=== PATIENT | female | born 1975 | race Caucasian/White ===

== ENCOUNTER 2017-10-06 13:27 | Emergency (ER) | payer OTHER ==
[2017-10-06 13:54] VITALS: BP 144/88; PULSE 87; TEMP 98.8; BMI 29.2
--- NOTE | 2017-10-06 14:24 | PDOC ---
History of Present Illness - General Chief Complaint: Toothache Stated Complaint: TOOTHACHE Time Seen by Provider: 10/06/17 14:02 History Source: Patient Exam Limitations: No Limitations - History of Present Illness Associated Symptoms: denies: chest pain, fever/chills, shortness of breath (42y/ o F with dental pain X 3 days) Past History - Travel Traveled outside of the country in the last 30 days: No Close contact w/someone who was outside of country & ill: No - Past Medical History Allergies/Adverse Reactions: Allergies Allergy/AdvReac Type Severity Reaction Status Date / Time No Known Allergies Allergy Verified 10/06/17 13:49 Home Medications: Ambulatory Orders Acetaminophen/Caffeine/Butalb [Fioricet -] 1 tab PO Q6H #28 tablet 05/06/15 Levothyroxine [Synthroid -] 100 mcg PO DAILY 05/06/15 Metoclopramide HCl [Reglan] 10 mg PO BID PRN #20 tablet 05/06/15 Amoxicillin/Potassium Clav [Augmentin 875-125 Tablet] 1 each PO BID 10 Days #20 tablet 10/06/17 Ibuprofen 800 mg PO ACDIN 7 Days #20 tablet 10/06/17 COPD: No Thyroid Disease: Yes - Suicide/Smoking/Psychosocial Hx Smoking Status: No Smoking History: Never smoked Have you smoked in the past 12 months: No Number of Cigarettes Smoked Daily: 0 Hx Alcohol Use: No Drug/Substance Use Hx: No Hx Substance Use Treatment: No Review of Systems - Review of Systems Able to Perform ROS?: Yes Is the patient limited Azeri proficient: No Constitutional: No: Chills, Fever HEENTM: Yes: Mouth Pain, Dental Problems. No: Throat Pain, Difficulty Swallowing Respiratory: No: Orthopnea, Shortness of Breath Cardiac (ROS): No: Chest Pain Neurological: No: Headache, Paresthesia *Physical Exam - Vital Signs Last Vital Signs Temp Pulse Resp BP Pulse Ox 98.8 F 87 18 144/88 100 10/06/17 13:47 10/06/17 13:47 10/06/17 13:47 10/06/17 13:47 10/06/17 13:47 - Physical Exam General Appearance: Yes: Nourished HEENT: positive: EOMI, Other (+ 2 carious tooth in left lower molar region,+ gum tenderness, no abscess noted) Neck: positive: Supple Respiratory/Chest: positive: Lungs Clear, Normal Breath Sounds Cardiovascular: positive: Regular Rhythm, Regular Rate, S1, S2 Integumentary: positive: Normal Color Neurologic: positive: marketing development representative II-XII NML intact, Fully Oriented, Alert Medical Decision Making - Medical Decision Making 10/06/17 14:22 42 years old female presents with lower molar pain for the past one week. Patient is status post root canal in the front incisor teeth area which was done on September 19. She is scheduled for a dental extraction on the of this month. Patient presents to emergency room with worsening pain in the area of where this rasher would've taken place. She is complaining of facial swelling. She denies any fever chills Exam consistent with two carious teeth in the left lower molar region positive Gum swelling and no obvious abscess noted. I will start patient on antibiotics Motrin when necessary for pain patient was advised to call dentist to follow-up old schedule a sooner appointment. *DC/Admit/Observation/Transfer Diagnosis at time of Disposition: Dental caries - Discharge Dispostion Disposition: HOME Condition at time of disposition: Stable Admit: No - Prescriptions Prescriptions: Amoxicillin/Potassium Clav [Augmentin 875-125 Tablet] 1 each PO BID 10 Days #20 tablet Ibuprofen 800 mg PO ACDIN 7 Days #20 tablet - Referrals Referrals: Eliana Lomeli [Primary Care Provider] - - Patient Instructions Additional Instructions: Follow-up dentist as scheduled or sooner Antibiotics as prescribed - Post Discharge Activity
== END 2017-10-06 14:28 | disposition home or self-care (01) ==
LOC: JER 13:27 → JERFT 13:27
DX: K02.9 Dental caries, unspecified (principal)
CPT/HCPCS: 99281-25

== ENCOUNTER 2017-11-06 15:37 | Inpatient (IN) | payer OTHER ==
--- NOTE | 2017-11-06 15:50 | PDOC ---
Rapid Medical Evaluation Time Seen by Provider: 11/06/17 15:47 Medical Evaluation: Allergies Allergy/AdvReac Type Severity Reaction Status Date / Time No Known Allergies Allergy Verified 10/06/17 13:49 I have performed a brief in-person evaluation of this patient. The patient presents with a chief complaint of: b/l flank pain x [address] Lomeli sent her here. Just finished ampicillin 5 days ago for dental procedure Pertinent physical exam findings: b/l flank pain with palpation. I have ordered the following: labs, UA/hcg The patient will proceed to the ED for further evaluation. Discharge Disposition - Diagnosis Abdominal pain - Referrals - Patient Instructions - Post Discharge Activity
[2017-11-06] MEDS ORDERED: SODIUM CHLORIDE 1,000 ML IV STA (16:02)
--- NOTE | 2017-11-06 16:02 | PDOC ---
History of Present Illness - General Chief Complaint: Pain, Acute Stated Complaint: ABD PAIN Time Seen by Provider: 11/06/17 15:47 - History of Present Illness Initial Comments: 11/06/17 16:31 The patient is a 42 year old female with no significant PMH who presents for evaluation of abdominal pain and diarrhea. The patient notes that she had a recent wisdom tooth extraction and has been taking penicillin which she stopped 6 days ago. She noted 4 days ago onset of diffuse intermittent crampy abdominal pain with associated nausea. She noted continued symptoms as well as diarrhea today prompting her presentation to the ED for further evaluation. She otherwise denies fevers, chills, SOB, chest pain, vomiting, or changes with urination. Past History - Past Medical History Allergies/Adverse Reactions: Allergies Allergy/AdvReac Type Severity Reaction Status Date / Time No Known Allergies Allergy Verified 11/06/17 15:51 Home Medications: Ambulatory Orders Levothyroxine [Synthroid -] 137 mcg PO DAILY 05/06/15 Calcitriol 0.5 mcg PO BID 11/06/17 COPD: No Thyroid Disease: Yes - Suicide/Smoking/Psychosocial Hx Smoking Status: No Smoking History: Never smoked Have you smoked in the past 12 months: No Number of Cigarettes Smoked Daily: 0 Information on smoking cessation initiated: No Hx Alcohol Use: No Drug/Substance Use Hx: No Hx Substance Use Treatment: No Review of Systems - Review of Systems Comments:: 11/06/17 16:39 Constitutional: No fevers, chills, fatigue, malaise HEENT: No Rhinorrhea, nasal congestion, visual changes Cardiovascular: No chest pain, syncope, palpitations, lightheadedness Respiratory: No Cough, SOB, Hemoptysis, Gastrointestinal: Abdominal discomfort, nausea, diarrhea. No Vomiting, Constipation, Melena Genitourinary: No Dysuria, Frequency, Urgency, Hesitancy, Hematuria, Flank pain Musculoskeletal: No Myalgia, arthralgia Skin: No rashes, itching, bruising, pallor Neurologic: No Headache, Dizziness, Numbness, Weakness, or Tingling Psychiatric: No Hallucinations. No SI or HI *Physical Exam - Vital Signs Last Vital Signs Temp Pulse Resp BP Pulse Ox 98.1 F 97 H 16 126/90 100 11/06/17 15:48 11/06/17 15:48 11/06/17 15:48 11/06/17 15:48 11/06/17 15:48 - Physical Exam Comments: 11/06/17 16:39 General Appearance: Nourished. No Apparent Distress HEENT: EOMI, LORI. No Pharyngeal Erythema, Tonsillar Exudate, Tonsillar Erythema Neck: No Cervical Lymphadenopathy Respiratory/Chest: Lungs Clear, Normal Breath Sounds. No Crackles, Rales, Rhonchi, Wheezing Cardiovascular: Regular Rhythm, Regular Rate. No Murmur, Gallops, Rubs Gastrointestinal/Abdominal: Normal Bowel Sounds, Soft. No Guarding, Rebound, Tenderness Musculoskeletal: No CVA Tenderness Extremity: Normal Capillary Refill Integumentary: Normal Color, Dry, Warm Neurologic: Fully Oriented, Alert, Normal Mood/Affect, Normal Response, ED Treatment Course - LABORATORY CBC & Chemistry Diagram: 11/06/17 16:13 11/06/17 16:13 Medical Decision Making - Medical Decision Making 11/06/17 16:40 The patient is a 42 year old female with no significant PMH who presents for evaluation of abdominal pain and diarrhea. Differential includes but is not limited to: Gastroenteritis, Cholecystitis, pancreatitis, infectious, metabolic derangement. Given the patient's history and physical exam, it is likely the patient's symptoms are due to a gastroenteritis. Bedside US demonstrates known gallstones. We will obtain a cbc, cmp, lipase, ua, urine preg, and gallbladder US to evaluate further for possible etiologies. We will treat in the meantime with iv fluids, zofran, pepcid, and mylanta. We will continue to monitor and reassess while here in the ED. 11/06/17 19:21 CBC demonstrates an elevated wbc to 15. UA is unremarkable. Patient signed out to the night team pending gallbladder US and cmp to evaluate further. *DC/Admit/Observation/Transfer Diagnosis at time of Disposition: Acute cholecystitis Abdominal pain Qualifiers: Abdominal location: unspecified location Qualified Code(s): R10.9 - Unspecified abdominal pain - Discharge Dispostion Condition at time of disposition: Fair - Referrals - Patient Instructions - Post Discharge Activity
--- NOTE | 2017-11-06 16:14 | PDOC ---
Attending Attestation - [facility] HPI: 11/06/17 16:40 The patient is a 42 year old female, with a significant past medical history of thyroid disease, who presents to the emergency department complaining of abdominal pain for the past 4 days, nausea and diarrhea which began today. She describes her pain as ranging from mild to moderate, without radiation or modifying factors. She reports that at times she does get a sour taste in the back of her mouth. She describes her diarrhea as nonbloody. She notes that she recently finished a 5 day regimen of penicillin after a dental procedure. The patient denies chest pain, shortness of breath, headache or dizziness. Denies fever, chills, vomiting, and constipation. Denies dysuria, frequency, urgency and hematuria. Allergies: None Past surgical history: None reported Social History: No alcohol, tobacco or drug use reported - Physicial Exam PE: 11/06/17 16:40 Constitutional: Awake, alert, oriented. No acute distress. Head: Normocephalic. Atraumatic Eyes: PERRL. EOMI. Conjunctivae are not pale. ENT: Mucous membranes are moist and intact. Posterior pharynx without exudates or erythema. Uvula midline. Neck: Supple. Full ROM. No lymphadenopathy. Cardiovascular: Regular rate. Regular rhythm. S1, S2 regular. Distal pulses are 2+ and symmetric. Pulmonary/Chest: No evidence of respiratory distress. Clear to auscultation bilaterally No wheezing, rales or rhonchi. Abdominal: Soft and non-distended. There is no tenderness. No rebound, guarding or rigidity. No organomegaly. No palpable masses. Good bowel sounds. Back: No CVA tenderness. Musculoskeletal: No edema. No cyanosis. No clubbing. Full range of motion in all extremities. Nocalf tenderness. Radial/pedal pulses are intact and 2+ bilaterally Skin: Skin is warm and dry. No petechiae. No purpura. Neurological: Alert and oriented to person, place, and time. Cranial nerves II -XII are grossly intact. Normal speech. Strength is grossly symmetric. No sensory deficits. Psychiatric: Good eye contact. Normal interaction, affect and behavior. Bedside Sonogram: (+) Reveals 4 gallstones, without pericholecystic fluid, with no thickeninf of the gallbladder wall. <Bryson Mckay - Last Filed: 11/06/17 16:40> - Resident Resident Name: Nilesh Hi - ED Attending Attestation I have performed the following: I have examined & evaluated the patient, The case was reviewed & discussed with the resident, I agree w/resident's findings & plan, Exceptions are as noted - Medical Decision Making 11/06/17 16:14 I, Dr. Minerva Samuel, DO, attest that this document has been prepared under my direction and personally reviewed by me in its entirety. I further attest, that it accurately reflects all work, treatment, procedures and medical decision -making performed by me. 11/06/17 16:34 a/p: 42yo female with nausea and diarrhea x 2 days -recently finished pcn for a dental procedure on Saturday -crampy abd pain - no pain currently -bedside u/s shows gallstones without signs of acute nga -will obtain formal imaging study -will obtain labs, ua -will monitor and reassess -suspect gastritis vs viral syndrome vs symptomatic cholelithiasis vs gerd -ivf hydration, zofran, maalox, pepcid 11/06/17 19:37 labs reviewed pt with thickened gb wall, gallstones, +sonographic murphys discussed with pt concern for acute nga will discuss with surgery 11/06/17 20:[address] Palomo who recommends ivf hydration, zosyn, consult to iron, admission to her accepts pt for admission <Minerva Samuel - Last Filed: 11/06/17 20:04> Discharge Disposition - Discharge Dispostion Last Admission D/C Date: 11/08/11 Decision to Admit order: Yes <Mienrva Samuel - Last Filed: 11/06/17 20:04> - Diagnosis Abdominal pain, Acute cholecystitis - Discharge Dispostion Condition at time of disposition: Fair - Referrals Referrals: Beverly Vizcarra MD [Primary Care Provider] - - Patient Instructions - Post Discharge Activity Heart Score/ECG Review - ECG Intrepretation Comment:: 11/06/17 20:03 sinus at 96, nl axis, nl interval, no acute st/t wave findings <Minerva Samuel - Last Filed: 11/06/17 20:04>
[2017-11-06] MEDS ORDERED: MAG HYDROX/AL HYDROX/SIMETH 30 ML UNIT-DOSE CUP PO ONE (16:16)
[2017-11-06] MEDS ORDERED: ONDANSETRON 4 MG/2 ML VIAL IVPUSH ONE (16:16)
[2017-11-06] MEDS ORDERED: MAG HYDROX/AL HYDROX/SIMETH 30 ML UNIT-DOSE CUP ONE (16:25)
[2017-11-06] MEDS ORDERED: ONDANSETRON 4 MG/2 ML VIAL ONE (16:41)
[2017-11-06 16:55] LABS: BASO % 0.5 % (0-2.0); EOS % 1.4 % (0-4.5); HEMATOCRIT 41.4 % (32.4-45.2); HEMOGLOBIN 13.6 GM/dL (10.7-15.3); LYMPH % 20.9 % (8-40); MCH 28.6 pg (25.7-33.7); MCHC 32.8 g/dl (32.0-36.0); MEAN CELL VOLUME 87.1 fl (80-96); MEAN PLT VOLUME 8.3 fl (7.5-11.1); MONO % 5.2 % (3.8-10.2); PLATELET COUNT 511 K/MM3 (134-434); RBC 4.75 M/mm3 (3.60-5.2); RDW 13.3 % (11.6-15.6); WHITE BLOOD COUNT 15.3 K/mm3 (4.0-10.0)
[2017-11-06] MEDS ORDERED: FAMOTIDINE 20 MG/50 ML IVPB 20 MG/50 ML MG IVPB ONE ×2 (16:57→17:00)
[2017-11-06 16:59] LABS: URINE APPEARANCE SLCLOUDY; URINE BILIRUBIN NEGATIVE (<2.0 mg/dL); URINE BLOOD NEGATIVE (NEGATIVE); URINE COLOR LTYELLOW; URINE GLUCOSE (UA) NEGATIVE (NEGATIVE); URINE KETONE TRACE (NEGATIVE); URINE NITRITE NEGATIVE (NEGATIVE); URINE PROTEIN NEGATIVE (NEGATIVE); URINE UROBILINOGEN NEGATIVE mg/dL (0.2-1.0)
[2017-11-06 17:17] LABS: HCG,QUALITATIVE URINE NEGATIVE
[2017-11-06 17:18] LABS: URINE LEUK ESTERASE 1+ (NEGATIVE)
[2017-11-06 17:39] LABS: ALBUMIN 4.1 g/dl (3.4-5.0); ANION GAP 6 (8-16); BLOOD UREA NITROGEN 9 mg/dL (7-18); CALCIUM 9.4 mg/dL (8.5-10.1); CHLORIDE 103 mmol/L (98-107); CO2 26 mmol/L (21-32); CREATININE 0.9 mg/dL (0.55-1.02); GLUCOSE,RANDOM 73 mg/dL (74-106); POTASSIUM 3.8 mmol/L (3.5-5.1); SGOT/AST 17 U/L (15-37); SODIUM 135 mmol/L (136-145)
[2017-11-06 17:49] LABS: ALK PHOS 85 U/L (45-117); BILIRUBIN,TOTAL 0.7 mg/dL (0.2-1.0); SGPT/ALT 35 U/L (12-78)
[2017-11-06 17:51] LABS: LIPASE 208 U/L (73-393)
[2017-11-06 19:17] LABS: EPI CELLS MODERATE /HPF (FEW); URINE BACTERIA FEW /hpf (NONE SEEN); URINE HYALINE CAST 2 /lpf; URINE MUCUS RARE
[2017-11-06 19:32] LABS: PLATELET ESTIMATE INCREASED
[2017-11-06] MEDS ORDERED: SODIUM CHLORIDE 0.9% 1000 ML INFUS.BAG IV ONE (19:47)
[2017-11-06] MEDS ORDERED: PIPERACILLIN/TAZOB 4.5 GM 4.5 GM in DEXTROSE 5%-WATER 100 ML IVPB ONE (19:58)
[2017-11-06] MEDS ORDERED: PIPERACILLIN/TAZOB 4.5 GM 4.5 GM/100 ML BAG IVPB ONE (20:12)
[2017-11-06 20:25] LABS: INR 1.15 (0.82-1.09)
[2017-11-06] MEDS: D5-1/2NS+20 MEQ KCL - 20 MEQ/1,000 ML INFUS.BAG IV SCH (21:42)
[2017-11-06] MEDS ORDERED: morphine CARPU-JECT 2 MG/1 ML DISP.SYRIN IVPUSH PRN (23:33)
[2017-11-06] MEDS ORDERED: ACETAMINOPHEN 1000 MG/100 ML VIAL (NON FORMULARY) IVPB ONE (23:33)
[2017-11-06] MEDS ORDERED: ACETAMINOPHEN 325 MG TABLET (FP) PO PRN (23:37)
[2017-11-06] MEDS ORDERED: ONDANSETRON 4 MG/2 ML VIAL IVPUSH PRN (23:41)
[2017-11-07 01:22] VITALS: BMI 31.7
[2017-11-07] MEDS ORDERED: PIPERACILLIN/TAZOBACTAM 3.375 GM VIAL IVPB ONE ×4 (01:28→17:15)
[2017-11-07] MEDS ORDERED: DEXTROSE 5%-WATER - 50 ML IVPB ONE ×3 (01:29→15:52)
[2017-11-07] MEDS: PIPERACILLIN/TAZOB 3.375 GM 3.375 GM in DEXTROSE 5%-WATER - 50 ML IVPB SCH ×3 (01:44→19:14)
[2017-11-07] MEDS ORDERED: LEVOTHYROXINE NA 25 MCG TABLET (FP) ONE (06:12)
[2017-11-07] MEDS ORDERED: LEVOTHYROXINE NA 112 MCG TABLET (FP) ONE (06:12)
[2017-11-07] MEDS ORDERED: LEVOTHYROXINE 25 MCG, LEVOTHYROXINE 112 MCG PO SCH (07:00)
[2017-11-07 07:36] LABS: BASO % 0.8 % (0-2.0); EOS % 3.9 % (0-4.5); HEMOGLOBIN 11.9 GM/dL (10.7-15.3); LYMPH % 31.3 % (8-40); MCH 29.5 pg (25.7-33.7); MCHC 33.9 g/dl (32.0-36.0); MEAN CELL VOLUME 87.1 fl (80-96); MEAN PLT VOLUME 8.2 fl (7.5-11.1); MONO % 8.3 % (3.8-10.2); NEUT % 55.7 % (42.8-82.8); PLATELET COUNT 389 K/MM3 (134-434); RBC 4.02 M/mm3 (3.60-5.2); RDW 13.3 % (11.6-15.6); WHITE BLOOD COUNT 7.4 K/mm3 (4.0-10.0)
[2017-11-07 08:06] LABS: ALBUMIN 3.1 g/dl (3.4-5.0); ANION GAP 7 (8-16); BLOOD UREA NITROGEN 8 mg/dL (7-18); CALCIUM 8.2 mg/dL (8.5-10.1); CHLORIDE 107 mmol/L (98-107); CO2 26 mmol/L (21-32); GLUCOSE,RANDOM 84 mg/dL (74-106); POTASSIUM 4.1 mmol/L (3.5-5.1); SODIUM 140 mmol/L (136-145)
[2017-11-07 08:09] LABS: ALK PHOS 63 U/L (45-117); BILIRUBIN,TOTAL 0.8 mg/dL (0.2-1.0); SGOT/AST 12 U/L (15-37); SGPT/ALT 27 U/L (12-78); TOT PROT 6.3 g/dl (6.4-8.2)
[2017-11-07 08:22] LABS: LIPASE 218 U/L (73-393)
[2017-11-07] MEDS ORDERED: LEVOTHYROXINE NA 100 MCG TABLET (FP) PO SCH (10:00)
--- NOTE | 2017-11-07 10:43 | HP ---
Admitting History and Physical - Primary Care Physician PCP: Kurt Vizcarra - Admission Chief Complaint: abdominal pain, nausea, diarrhea History of Present Illness: 42yo F with h/o hyperthyroidism s/p thyroidectomy now on replacement tx, s/p abdominoplasty, presented to ER with upper abdominal pain associated with diarrhea and nausea but no vomiting. She had a course of Augmentin last month for tooth pain, followed by wisdom tooth extraction ~10/21 and a postop course of Penicillin completed on Saturday. Saturday, she began having abdominal pain, feeling like she had to use the bathroom, which became worse over the next few days. and Sat, she began having foul-smelling, yellowish diarrhea and worse pain, and came to the ER. She also noted chills but no fever, and did not eat yesterday. She had nausea but no actual vomiting. In the ER, she had wbc 15 , and US showed multiple gallstones, mildly thickened wall, no fluid, normal duct, suspicious for acute cholecystitis. She had a Gamez's sign on US. Her pain is currently better, but she last had some loose stool just this morning. She has been started on IVF and Zosyn for acute cholecystitis. History Source: Patient Limitations to Obtaining History: No Limitations - Past Medical History Hepatobiliary: Yes: Cholelithiasis ...: No Endocrine: Yes: Hyperthyroidism (h/o hyper, now s/p thyroidectomy), Hypothyroidism (postop - takes synthroid) - Past Surgical History Additional Past Surgical History: thyroidectomy, abdominoplasty, wisdom tooth extraction 10/21/17 - Smoking History Smoking history: Never smoked (<1 yr remotely) Have you smoked in the past 12 months: No Aproximately how many cigarettes per day: 0 - Alcohol/Substance Use Hx Alcohol Use: Yes (occasionally) History of Substance Use: reports: None - Social History Usual Living Arrangement: Yes: With Child ADL: Independent 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 denies: Fever Eyes: reports: Other (wears glasses). denies: Recent Change in Vision HENT: denies: Difficult Swallowing, Nasal Congestion, Throat Pain Neck: denies: Swollen Glands, Tenderness Cardiovascular: denies: Chest Pain, Palpitations Respiratory: denies: Cough, SOB Gastrointestinal: reports: Abdominal Pain (with hpi), Bloating, Diarrhea (with hpi), Nausea (with hpi). denies: Vomiting Genitourinary: denies: Burning, Dysuria Musculoskeletal: denies: Back Pain, Joint Pain, Muscle Pain Integumentary: denies: Change in Color, Rash Neurological: reports: Headache (gets sometimes). denies: Dizziness Psychiatric: denies: Anxiety, Depression Physical Examination Vital Signs: Vital Signs Temperature 98.5 F 11/07/17 05:39 Pulse Rate 77 11/07/17 05:39 Respiratory Rate 20 11/07/17 05:39 Blood Pressure 114/70 11/07/17 05:39 O2 Sat by Pulse Oximetry (%) 100 11/07/17 00:27 Constitutional: Yes: Well Nourished, No Distress, Calm Eyes: Yes: Conjunctiva Clear, EOM Intact. No: Sclera Icterus HENT: Yes: Atraumatic, Normocephalic Neck: Yes: Supple, Trachea Midline Cardiovascular: Yes: Regular Rate and Rhythm. No: Murmur Respiratory: Yes: Regular, CTA Bilaterally Gastrointestinal: Yes: Normal Bowel Sounds, Soft, Tenderness (mild RUQ no R/G), Other (well-healed abdominoplasty scars). No: Distention, Hernia (no umbilical appreciated) ...Rectal Exam: Yes: Deferred Renal/: No: CVA Tenderness - Left, CVA Tenderness - Right Musculoskeletal: No: Back Pain (no direct tenderness), Joint Stiffness, Joint Swelling Extremities: No: Cool, Cyanosis Edema: No Peripheral Pulses WNL: Yes Integumentary: Yes: Tattoos (ankle). No: Jaundice, Rash Neurological: Yes: Alert, Oriented Psychiatric: Yes: Alert, Oriented Labs: CBC, BMP 11/07/17 06:00 11/07/17 06:00 CMP Sodium 140 mmol/L (136-145) 11/07/17 06:00 Potassium 4.1 mmol/L (3.5-5.1) 11/07/17 06:00 Chloride 107 mmol/L (98-107) 11/07/17 06:00 Carbon Dioxide 26 mmol/L (21-32) 11/07/17 06:00 Anion Gap 7 (8-16) L 11/07/17 06:00 BUN 8 mg/dL (7-18) 11/07/17 06:00 Creatinine 1.0 mg/dL (0.55-1.02) 11/07/17 06:00 Creat Clearance w eGFR > 60 (>60) 11/07/17 06:00 Random Glucose 84 mg/dL (74-106) 11/07/17 06:00 Calcium 8.2 mg/dL (8.5-10.1) L 11/07/17 06:00 Total Bilirubin 0.8 mg/dL (0.2-1.0) 11/07/17 06:00 AST 12 U/L (15-37) L 11/07/17 06:00 ALT 27 U/L (12-78) 11/07/17 06:00 Alkaline Phosphatase 63 U/L (45-117) 11/07/17 06:00 Total Protein 6.3 g/dl (6.4-8.2) L 11/07/17 06:00 Albumin 3.1 g/dl (3.4-5.0) L 11/07/17 06:00 Lipase 218 U/L (73-393) 11/07/17 06:00 wbc down from 15 LFTs, lipase normal x2 INR, PTT INR 1.15 (0.82-1.09) H 11/06/17 19:50 Urine Test Results Urine Color Ltyellow 11/06/17 15:51 Urine Appearance Slcloudy 11/06/17 15:51 Urine pH 7.0 (5.0-8.0) 11/06/17 15:51 Ur Specific [place] 1.004 (1.001-1.035) 11/06/17 15:51 Urine Protein Negative (NEGATIVE) 11/06/17 15:51 Urine Glucose (UA) Negative (NEGATIVE) 11/06/17 15:51 Urine Ketones Trace (NEGATIVE) H 11/06/17 15:51 Urine Blood Negative (NEGATIVE) 11/06/17 15:51 Urine Nitrite Negative (NEGATIVE) 11/06/17 15:51 Urine Bilirubin Negative (<2.0 mg/dL) 11/06/17 15:51 Ur Leukocyte Esterase 1+ (NEGATIVE) H 11/06/17 15:51 Ur Epithelial Cells Moderate /HPF (FEW) 11/06/17 15:51 Urine Bacteria Few /hpf (NONE SEEN) 11/06/17 15:51 Urine Mucus Rare 11/06/17 15:51 Imaging - Results Ultrasound: Report Reviewed, Image Reviewed (images personally reviewed - multiple gallstones, mildly thickened wall, no pericholecystic fluid, cbd 3.4mm) Problem List - Problems (1) Calculus of gallbladder with cholecystitis without biliary obstruction Assessment/Plan: pt describes h/o likely biliary colic and known gallstones identified several months ago admit to surgery NPO/IVF until postop pain meds prn DVT prophylaxis trend labs - no increase in LFTs or lipase this am, wbc down antibiotics, ID on board Discussed with patient risks, benefits and alternatives of laparoscopic possible open cholecystectomy, including but not limited to bleeding, infection , injury to adjacent structures, bile leak or ductal injury, intraabdominal abscess, need for further procedures; alternatives include antibiotics, delayed or no surgery - risks of this include cholangitis, recurrence of biliary colic, cholecystitis, pancreatitis. Patient desires to proceed with operation - will take to OR for above. Informed consent signed for same. anticipate pt will spend 2 midnights in hospital Code(s): K80.00 - CALCULUS OF GALLBLADDER W ACUTE CHOLECYST W/O OBSTRUCTION Qualifiers: Cholecystitis acuity: acute Qualified Code(s): K80.00 - Calculus of gallbladder with acute cholecystitis without obstruction (2) Upper abdominal pain Code(s): R10.10 - UPPER ABDOMINAL PAIN, UNSPECIFIED (3) Diarrhea Assessment/Plan: will check stool for C. diff if diarrhea continues Code(s): R19.7 - DIARRHEA, UNSPECIFIED Qualifiers: Diarrhea type: unspecified type Qualified Code(s): R19.7 - Diarrhea, unspecified (4) Nausea alone Code(s): R11.0 - NAUSEA (5) Hypothyroidism Assessment/Plan: continue home meds Code(s): E03.9 - HYPOTHYROIDISM, UNSPECIFIED Qualifiers: Hypothyroidism type: postoperative Qualified Code(s): E89.0 - Postprocedural hypothyroidism
[2017-11-07] MEDS ORDERED: CALCITRIOL 0.25 MCG CAPSULE (FP) PO SCH (10:45)
[2017-11-07] MEDS: D5-1/2NS+20 MEQ KCL - 20 MEQ/1,000 ML INFUS.BAG IV SCH (11:28)
--- NOTE | 2017-11-07 11:28 | EKG ---
Test Reason : Blood Pressure : / mmHG Vent. Rate : 096 BPM Atrial Rate : 096 BPM P-R Int : 178 ms QRS Dur : 082 ms QT Int : 350 ms P-R-T Axes : 022 -05 005 degrees QTc Int : 442 ms NORMAL SINUS RHYTHM NORMAL ECG WHEN COMPARED WITH ECG OF 07-NOV-2011 09:08, PREMATURE SUPRAVENTRICULAR COMPLEXES ARE NO LONGER PRESENT Confirmed by WILIAM ANDERSON MD ([id number]) on 11/07/2017 11:28:16 AM Referred By: Confirmed By:WILIAM ANDERSON MD
[2017-11-07] MEDS ORDERED: BUPIVACAINE HCL/PF 0.25% (2.5MG/ML) 10 ML VIAL ONE (15:05)
[2017-11-07] MEDS ORDERED: ROCURONIUM BROMIDE 50 MG/5 ML VIAL ONE ×2 (15:19→16:06)
[2017-11-07] MEDS ORDERED: PROPOFOL 20 ML ONE ×3 (15:20→17:13)
[2017-11-07] MEDS ORDERED: LIDOCAINE HCL/PF 2% SDV 5ML VIAL ONE (15:20)
--- NOTE | 2017-11-07 15:36 | CON.ID ---
Consult Consult Specialty:: infectious diseases Referred by:: Dr Palomo Reason for Consultation:: leukocytosis,choleycystitis - History of Present Illness Chief Complaint: rt upper quadrant pain History of Present Illness: 42yo F with h/o hyperthyroidism s/p thyroidectomy now on replacement tx, s/p abdominoplasty, admitted with upper abdominal pain associated with diarrhea and nausea but no vomiting. She had a course of Augmentin last month for tooth pain , followed by wisdom tooth extraction ~10/21 and a postop course of Penicillin completed on Saturday. patient started having abd pain which worsened over last couple of days and the pain was associated with chills. patient came to the hospital was worked up and found to ahve leukocytosis and also choleycystitis patient for surgery today us shoed multiple gall stones patient also mentions of having dirrhoea - History Source History Provided By: Patient Limitations to Obtaining History: No Limitations - Past Medical History Hepatobiliary: Yes: Cholelithiasis ...: No Endocrine: Yes: Hyperthyroidism (h/o hyper, now s/p thyroidectomy), Hypothyroidism (postop - takes synthroid) - Alcohol/Substance Use Hx Alcohol Use: Yes (occasionally) History of Substance Use: reports: None - Smoking History Smoking history: Never smoked (<1 yr remotely) Have you smoked in the past 12 months: No Aproximately how many cigarettes per day: 0 - Social History ADL: Independent 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 Home Medications - Allergies Allergies/Adverse Reactions: Allergies Allergy/AdvReac Type Severity Reaction Status Date / Time No Known Allergies Allergy Verified 11/06/17 15:51 - Home Medications Home Medications: Ambulatory Orders Levothyroxine [Synthroid -] 137 mcg PO DAILY 05/06/15 Calcitriol 0.5 mcg PO BID 11/06/17 Review of Systems - Review of Systems Constitutional: reports: Chills Eyes: reports: No Symptoms HENT: reports: No Symptoms Neck: reports: No Symptoms Cardiovascular: reports: No Symptoms Respiratory: reports: No Symptoms Gastrointestinal: reports: Abdominal Pain (ruq) Musculoskeletal: reports: No Symptoms Integumentary: reports: No Symptoms Neurological: reports: No Symptoms Endocrine: reports: No Symptoms Hematology/Lymphatic: reports: No Symptoms Psychiatric: reports: No Symptoms Physical Exam Vital Signs: Vital Signs Temperature 98 F 11/07/17 14:22 Pulse Rate 80 11/07/17 14:22 Respiratory Rate 20 11/07/17 14:22 Blood Pressure 111/71 11/07/17 14:22 O2 Sat by Pulse Oximetry (%) 100 11/07/17 00:27 Constitutional: Yes: Well Nourished, Calm, Mild Distress, Obese Eyes: Yes: Conjunctiva Clear Neck: Yes: Supple Cardiovascular: Yes: Regular Rate and Rhythm Respiratory: Yes: Regular, CTA Bilaterally Gastrointestinal: Yes: Soft, Tenderness (ruq) Musculoskeletal: Yes: WNL Extremities: Yes: WNL Neurological: Yes: Alert, Oriented Psychiatric: Yes: Alert, Oriented Labs: CBC, BMP 11/07/17 06:00 11/07/17 06:00 Imaging - Results Ultrasound: Report Reviewed, Image Reviewed Assessment/Plan Problem List - Problems (1) Calculus of gallbladder with cholecystitis without biliary obstruction Code(s): K80.00 - CALCULUS OF GALLBLADDER W ACUTE CHOLECYST W/O OBSTRUCTION Qualifiers: Cholecystitis acuity: acute Qualified Code(s): K80.00 - Calculus of gallbladder with acute cholecystitis without obstruction (2) Upper abdominal pain Code(s): R10.10 - UPPER ABDOMINAL PAIN, UNSPECIFIED (3) Diarrhea Code(s): R19.7 - DIARRHEA, UNSPECIFIED Qualifiers: Diarrhea type: unspecified type Qualified Code(s): R19.7 - Diarrhea, unspecified (4) Nausea alone Code(s): R11.0 - NAUSEA (5) Hypothyroidism Code(s): E03.9 - HYPOTHYROIDISM, UNSPECIFIED Qualifiers: Hypothyroidism type: postoperative Qualified Code(s): E89.0 - Postprocedural hypothyroidism plan zosyn for surgery check cdiff rest as per the team
[2017-11-07] MEDS ORDERED: MIDAZOLAM HCL 2 MG/2 ML SINGLE DOSE VIAL ONE (15:52)
[2017-11-07] MEDS ORDERED: NEOSTIGMINE METHYLSULFATE 0.5 MG/ML - 10 ML MDV ONE (16:26)
[2017-11-07] MEDS ORDERED: GLYCOPYRROLATE 0.2 MG/1 ML VIAL ONE (16:27)
[2017-11-07] MEDS ORDERED: DEXAMETHASONE SOD PHOSPHATE 4 MG/1 ML VIAL ONE (16:28)
[2017-11-07] MEDS ORDERED: KETOROLAC TROMETHAMINE 30 MG/1 ML VIAL ONE (16:28)
[2017-11-07] MEDS ORDERED: DESFLURANE GAS 240 ML BOTTLE IH ONE (16:31)
[2017-11-07] MEDS ORDERED: METOPROLOL TARTRATE 5 MG/5 ML VIAL ONE (16:44)
[2017-11-07] MEDS ORDERED: BUPIVACAINE HCL/PF 0.5% (5MG/ML) 10 ML VIAL IJ ONE (17:21)
--- NOTE | 2017-11-07 17:43 | OP ---
Operative Note - Note: Operative Date: 11/07/17 Pre-Operative Diagnosis: acute cholecystitis Operation: laparoscopic cholecystectomy Findings: edematous gallbladder with multiple stones; critical view identified Post-Operative Diagnosis: Same as Pre-op Surgeon: Andrea Palomo Trial Court Justice: Kevin Aburto Anesthesiologist/BLOCKERS SKIVER: Meño King Anesthesia: General, Local (20ml 0.25% marcaine) Specimens Removed: gallbladder to pathology Estimated Blood Loss (mls): 5 Fluid Volume Replaced (mls): 500 (crystalloid) Operative Report Dictated: Yes
[2017-11-07] MEDS ORDERED: oxyCODONE HCL 5 MG TABLET PO PRN ×2 (17:47→18:09)
[2017-11-07] MEDS ORDERED: ONDANSETRON 4 MG/2 ML VIAL IVPUSH PRN ×2 (17:49→18:09)
[2017-11-07] MEDS ORDERED: ACETAMINOPHEN 1000 MG/100 ML VIAL (NON FORMULARY) IVPB ONE (18:00)
[2017-11-07] MEDS ORDERED: D5-1/2NS+20 MEQ KCL - 20 MEQ/1,000 ML INFUS.BAG IV SCH (18:00)
[2017-11-07] MEDS ORDERED: LACTATED RINGERS SOLUTION 1,000 ML IV SCH (18:00)
[2017-11-07] MEDS: LACTATED RINGERS SOLUTION 1,000 ML IV SCH (19:30)
--- NOTE | 2017-11-07 19:45 | OP ---
DATE OF OPERATION: 11/07/2017 PREOPERATIVE DIAGNOSIS: Acute cholecystitis. POSTOPERATIVE DIAGNOSIS: Acute cholecystitis. PROCEDURE: Laparoscopic cholecystectomy. SURGEON: Andrea Palomo M.D. IRONER: Kevin Aburto M.D. ANESTHESIA: General endotracheal with local (20 mL 0.25% Marcaine). ESTIMATED BLOOD LOSS: 5 mL. FLUIDS: 500 mL crystalloid. SPECIMEN: Gallbladder to pathology. FINDINGS: An edematous gallbladder with multiple stones, the critical view was identified. DISPOSITION: Stable and extubated to PACU. INDICATION FOR PROCEDURE: Patient is a 42-year-old female with hypothyroidism status post abdominoplasty and with a known history of gallstones diagnosed several months ago when she describes pain suggestive of biliary colic, who presented to the emergency room with upper abdominal pain associated with diarrhea and nausea, beginning initially on Saturday. She had recently finished some antibiotic courses for dental work, having recently had wisdom tooth removed. In emergency room she had a white count of 15,000. An ultrasound showed multiple gallstones, mildly thickened gallbladder wall, no pericholecystic fluid, and normal common bile duct, was suspicious for acute cholecystitis. She also had a Gamez sign present at the time. She was put on IV fluids and antibiotics for acute cholecystitis, admitted to surgery. Risks, benefits, and alternatives of laparoscopic, possible open cholecystectomy including but not limited to bleeding, infection, injury to adjacent structures, bile leak, or ductal injury, intraabdominal abscess, hernia, and need for further procedures and alternatives inclusive of delayed or no surgery were discussed with the patient. Risks of no intervention include cholangitis, recurrence of biliary colic, cholecystitis, or pancreatitis. Patient desired to proceed with the operation and signed informed consent for the procedure. The labs were stable this morning with no increase in normal LFTs and lipase, and a white count decreased to normal. She is now brought to the OR for this procedure. OPERATIVE TECHNIQUE: The patient was brought to the operating room and laid supine on the operating table. Sequential compression devices were applied to bilateral lower extremities and her scheduled dose of Zosyn was given intraoperatively although not immediately prior to the case, as it was not quite yet due. She had already had at least 3 doses of antibiotics. After induction and intubation by anesthesia, the patient's abdomen was prepped and draped in sterile fashion. Next, a small supraumbilical midline incision was made with the scalpel and carried into subcutaneous tissues with electrocautery until the abdominal wall fascia was identified, scored and elevated with William clamps, as the patient had had a previous abdominoplasty, the fascia in this area had been plicated, and a second layer of rectus fascia was also identified, divided with electrocautery, and grasped with William clamps. The peritoneum was entered bluntly with the tip of a clamp, and a fingertip was inserted to ensure entry into the abdominal cavity and the absence of any underlying adhesions. A stay suture of 0 Vicryl was placed in the lowest/internal layer of fascia in [id number] fashion for later closure, and the Abrams trocar introduced directly into the abdominal cavity and secured in place with a balloon. The abdomen was insufflated with carbon dioxide, and the patient was placed in reverse Trendelenburg position, and the laparoscope was inserted to inspect the abdominal cavity. The stomach was decompressed with anesthesia with a temporary nasogastric tube. A 5-mm port was placed under direct vision in the subxiphoid area through which a grasper was used to gently elevate the liver, identifying the gallbladder just underneath the edge and looking partly intrahepatic. Multiple stones were palpable inside the gallbladder. Two additional 5-mm ports were then placed under direct vision in the right lateral and upper quadrants through which graspers were introduced. The first two grasped the fundus of the gallbladder and elevated it superiorly toward the edge of the liver, the second two grasped the infundibulum and retracted it laterally. Maryland dissector was then used to the operative port to begin dissecting the peritoneum away from the base of the gallbladder. The fatty tissue as it was dissected was noted to be somewhat oozy with some blood. As the fat was dissected away from the cystic duct, it came into view very clearly at the base of the gallbladder was also clearly identified. With additional dissection the cystic duct was isolated and noted to be the only structure directly entering the gallbladder from both medial and lateral sides in the critical view. It was then clipped 2 proximally and 1 distally and divided with Endoscissors. Medially, there was a structure that initially looked like the cystic artery which was also isolated carefully and clipped, 2 proximally and 1 distally, and divided with Endoscissors at which point at which point it was realized this was simply connective tissue and the actual cystic artery was just behind this. Maryland dissector was again used to continue dissecting out the artery and isolating it clearly enough to be able to clip that as well with two 5-mm clips proximally and one distally, it was then divided with endoscissors and the stump noted to pulsate. The hook cautery was then used to take the gallbladder off the liver bed. There was an area in the lower half where the gallbladder was quite adherent to the liver bed and in fact peeled off with a little bit of oozing from the liver bed which was cauterized in part as we went. At one point toward the end of the dissection, the upper medial portion almost to the top of the gallbladder, there was a small hole made in the gallbladder wall with a very small amount of thick, brown, bile spillage and one stone that sneaked out. Once the gallbladder had been completely from the liver, it was grasped with the hole closed with the grasper and placed in Endocatch bag which was introduced through the umbilical port when the camera moved to the subxiphoid port. Once the gallbladder was safely inside the Endocatch bag, the single stone that had escaped was also retrieved with a grasper and placed into the bag as well. This was then retrieved at the umbilical port site. The gallbladder itself was noted to contain multiple stones and was passed off the table as a specimen. The Abrams trocar and pneumoperitoneum were then reestablished, the camera reinserted, and the operative field inspected for hemostasis. The device was used to copiously irrigate the area with saline solution and suction out both the fluid and the blood clot from the original dissection. The operative field was inspected and noted to be hemostatic with no active bleeding. The clips were also noted to be intact, thus a portion of the omentum was tucked up into the operative field after the last of the fluid was suctioned out from over the liver, patient was returned in neutral position and the 5-mm ports were all removed under direct vision. The Abrams trocar and camera were then also removed, and the abdomen exsufflated of carbon dioxide. The stay suture at the umbilical port site was tied to close the first layer of fascia there, at which point the plicated fascia over the top of that was also closed with an additional [id number] 0 Vicryl suture. Hemostasis was achieved and the port sites with electrocautery were necessary. Local anesthetic was then infiltrated into all 4 port sites and skin was closed with 4-0 Vicryl subcuticular sutures including a running at the umbilicus. Benzoin and Steri-Strips were applied to each incision and dressings of gauze and Tegaderm placed over these. Counts were correct at the end of the procedure. The patient was then awakened and extubated by anesthesia back to a stretcher and taken to the recovery room in stable condition having tolerated the procedure well. Dr. Aburto was an essential guest services assistant throughout the procedure, beginning with entry into the abdominal cavity, grasping and manipulation of the gallbladder throughout the case, assistance with retrieving the gallbladder out of the abdomen clearing the field and closure of the incisions afterward. Andrea Palomo M.D. [id number]
[2017-11-07] MEDS ORDERED: IBUPROFEN 600 MG TABLET (FP) PO SCH (21:00)
[2017-11-07] MEDS: IBUPROFEN 600 MG TABLET (FP) PO SCH (21:59)
[2017-11-07] MEDS: CALCITRIOL 0.25 MCG CAPSULE (FP) PO SCH (22:00)
[2017-11-08] MEDS ORDERED: ACETAMINOPHEN 325 MG TABLET (FP) PO SCH
[2017-11-08] MEDS ORDERED: DEXTROSE 5%-WATER - 50 ML IVPB ONE ×2 (00:52→09:38)
[2017-11-08] MEDS ORDERED: PIPERACILLIN/TAZOBACTAM 3.375 GM VIAL IVPB ONE ×2 (00:52→09:38)
[2017-11-08] MEDS: ACETAMINOPHEN 325 MG TABLET (FP) PO SCH ×3 (00:56→12:38)
[2017-11-08] MEDS: PIPERACILLIN/TAZOB 3.375 GM 3.375 GM in DEXTROSE 5%-WATER - 50 ML IVPB SCH ×2 (01:08→09:45)
[2017-11-08] MEDS: IBUPROFEN 600 MG TABLET (FP) PO SCH ×2 (05:07→08:18)
[2017-11-08] MEDS ORDERED: LEVOTHYROXINE NA 112 MCG TABLET (FP) ONE (05:19)
[2017-11-08] MEDS ORDERED: LEVOTHYROXINE NA 25 MCG TABLET (FP) ONE (05:19)
[2017-11-08] MEDS ORDERED: LEVOTHYROXINE 25 MCG, LEVOTHYROXINE 112 MCG PO SCH (07:00)
[2017-11-08] MEDS: LACTATED RINGERS SOLUTION 1,000 ML IV SCH ×2 (07:50→09:45)
--- NOTE | 2017-11-08 08:15 | PN ---
Progress Note, Physician Chief Complaint: s/p lap cholecystectomy under general anesthesia History of Present Illness: post op day one - Current Medication List Current Medications: Active Medications Acetaminophen (Tylenol -) 650 mg PO Q6H [facility] Last Admin: 11/08/17 06:06 Dose: 650 mg Calcitriol (Rocaltrol -) 0.5 mcg PO BID [facility] Last Admin: 11/07/17 22:00 Dose: 0.5 mcg Lactated Ringer's (Lactated Ringers Solution) 1,000 mls @ 75 mls/hr IV ASDIR [facility] Last Admin: 11/08/17 07:50 Dose: Not Given Piperacillin Sod/Tazobactam (Sod 3.375 gm/ Dextrose) 50 mls @ 100 mls/hr IVPB Q8H-IV [facility]; Protocol Last Admin: 11/08/17 01:08 Dose: 100 mls/hr Ibuprofen (Motrin -) 600 mg PO Q6H [facility] Last Admin: 11/08/17 05:07 Dose: Not Given Levothyroxine Sodium 25 mcg/ (Levothyroxine Sodium 112 mcg) 137 mcg PO DAILY@ 0700 [facility] Last Admin: 11/08/17 06:07 Dose: 137 mcg Ondansetron HCl (Zofran Injection) 4 mg IVPUSH Q6H PRN PRN Reason: NAUSEA Oxycodone HCl (Roxicodone -) 5 mg PO Q6H PRN PRN Reason: Pain Level 7 - 10 BREAKTHROUGH - Objective Vital Signs: Vital Signs Temperature 98.2 F 11/08/17 05:57 Pulse Rate 79 11/08/17 05:57 Respiratory Rate 18 11/08/17 05:57 Blood Pressure 128/83 11/08/17 05:57 O2 Sat by Pulse Oximetry (%) 98 11/07/17 21:00 Constitutional: Yes: Well Nourished Cardiovascular: Yes: WNL Respiratory: Yes: WNL Gastrointestinal: Yes: WNL Labs: CBC, BMP 11/07/17 06:00 11/07/17 06:00 INR, PTT INR 1.15 (0.82-1.09) H 11/06/17 19:50 Assessment/Plan No complaints about anesthesia. No nausea. Dept of anesthesia will sign off care at this time.
[2017-11-08] MEDS: CALCITRIOL 0.25 MCG CAPSULE (FP) PO SCH (09:45)
[2017-11-08 10:11] VITALS: BP 128/80; PULSE 87; TEMP 98.4
--- NOTE | 2017-11-08 11:54 | DS ---
Physical Examination Vital Signs: Vital Signs Temperature 98.4 F 11/08/17 09:00 Pulse Rate 87 11/08/17 09:00 Respiratory Rate 18 11/08/17 09:00 Blood Pressure 128/80 11/08/17 09:00 O2 Sat by Pulse Oximetry (%) 99 11/08/17 09:00 Findings/Remarks: Pt seen and examined in bed. Feeling much better. Pain manageable with Tylenol and ibuprofen. Voided and passed small loose BM. Tolerated light breakfast. Ambulating to bathroom. Constitutional: Yes: Well Nourished, No Distress, Calm Eyes: Yes: Conjunctiva Clear, EOM Intact HENT: Yes: Atraumatic, Normocephalic Cardiovascular: Yes: Regular Rate and Rhythm, Tachycardia (mild). No: Murmur Respiratory: Yes: Regular, CTA Bilaterally Gastrointestinal: Yes: Normal Bowel Sounds, Soft, Distention (mild), Tenderness (mild incisional, minimal RUQ, no R/G) ...Rectal Exam: Yes: Deferred Musculoskeletal: No: Joint Stiffness, Joint Swelling Extremities: No: Cool, Cyanosis Edema: No Integumentary: Yes: Incision (x4 dressed), Tattoos. No: Jaundice, Rash Wound/Incision: Yes: Steri Strips (under dressings), Dressing Dry and Intact (x4 ). No: Dressing Removed Neurological: Yes: Alert, Oriented. No: Unsteady Gait Labs: no new labs Microbiology 11/06/17 15:51 Urine Culture - Final Urine - Urine Clean Catch Lactobacillus Species Discharge Summary Reason For Visit: ACUTE CHOLECYSTITIS Current Active Problems Calculus of gallbladder with cholecystitis without biliary obstruction (Acute) Diarrhea (Acute) Hypothyroidism (Acute) Nausea alone (Acute) Upper abdominal pain (Acute) Procedures: Principal: laparoscopic cholecystectomy Hospital Course: 42yo F with hypothyroidism s/p thyroidectomy, s/p abdominoplasty and bilateral breast reduction, h/o recent wisdom tooth extraction and courses of Augmentin and Penicillin, was admitted through ER Wed with c/o upper abdominal pain starting Saturday, associated with nausea but no vomiting, diarrhea on Sat and Sat. US showed multiple gallstones, thickened gallbladder wall and positive Gamez's sign. LFTs and lipase remained normal. WBC was initially 15, down to normal after starting IVF and Zosyn, which was continued perioperatively. She was taken for laparoscopic cholecystectomy, after which she was able to tolerate breakfast, ambulate, void and had a small loose BM, which was sent for C. diff testing. Pain is controlled with OTC meds, alternating Tylenol and ibuprofen. Her urine from ER grew Lactobacillus species, but she had multiple doses of Zosyn, and is asymptomatic. She is discharged home with lifting/work restrictions to follow up in 2 weeks and with PMD. If C. diff returns positive, she will be contacted and Flagyl Rx to her pharmacy. Condition: Good - Instructions Diet, Activity, Other Instructions: Postoperative instructions: You had a laparoscopic cholecystectomy on 11/07/[address] Andrea Palomo of [facility]. Activity: Resume your usual activities gradually, but no heavy exertion or lifting more than 10-15 pounds for 1 month. Remove dressings 48 hours after surgery; sticky tapes underneath will fall off by themselves. You may shower daily starting then, just pat the incision areas dry. No bath or swimming until skin incisions have healed. Eat lightly at first, but advance to your usual diet as tolerated. Pain: For pain, you may use and alternate Tylenol (acetaminophen) and/or ibuprofen every 6 hours each as needed; this means that you can take one OR the other at 3-hour intervals. If you are prescribed a Tylenol/narcotic combination for severe pain, use it instead of plain Tylenol as needed and switch back when your pain starts decreasing. Do not take more than 4000mg of acetaminophen in a day. Take medications as prescribed or indicated on the labeling. Follow-up: Call Dr. Palomo's office at [phone] to make your postop appointment (Saturday ~2 weeks after surgery). Clinic is held in the [facility] on the first floor of [facility]. Call the office if you have: * increasing pain not responsive to pain medication * fever of 101F or higher * vomiting * unusual or increasing bleeding or drainage from wounds * increasing redness or swelling at wound sites Also, see your primary medical doctor (Dr. Vizcarra) within 1-2 weeks. Referrals: Beverly Vizcarra MD [Primary Care Provider] - Disposition: HOME - Home Medications Comprehensive Discharge Medication List: Ambulatory Orders Levothyroxine [Synthroid -] 137 mcg PO DAILY 05/06/15 Calcitriol 0.5 mcg PO BID 11/06/17 Acetaminophen [Tylenol .Regular Strength -] 650 mg PO Q6H tablet 11/08/17 Ibuprofen [Motrin -] 600 mg PO Q6H tablet 11/08/17
[2017-11-08] MEDS ORDERED: metroNIDAZOLE 250 MG TABLET PO STA (12:22)
--- NOTE | 2017-11-08 12:26 | PN ---
Progress Note, Physician History of Present Illness: patient doing well no complaints had a loose stool cdiff send toxin negative antigen positive - Current Medication List Current Medications: Active Medications Acetaminophen (Tylenol -) 650 mg PO Q6H [facility] Last Admin: 11/08/17 06:06 Dose: 650 mg Calcitriol (Rocaltrol -) 0.5 mcg PO BID [facility] Last Admin: 11/08/17 09:45 Dose: 0.5 mcg Piperacillin Sod/Tazobactam (Sod 3.375 gm/ Dextrose) 50 mls @ 100 mls/hr IVPB Q8H-IV [facility]; Protocol Last Admin: 11/08/17 09:45 Dose: 100 mls/hr Ibuprofen (Motrin -) 600 mg PO Q6H [facility] Last Admin: 11/08/17 08:18 Dose: 600 mg Levothyroxine Sodium 25 mcg/ (Levothyroxine Sodium 112 mcg) 137 mcg PO DAILY@ 0700 [facility] Last Admin: 11/08/17 06:07 Dose: 137 mcg Metronidazole (Flagyl -) 500 mg PO ONCE STA Stop: 11/08/17 12:23 Ondansetron HCl (Zofran Injection) 4 mg IVPUSH Q6H PRN PRN Reason: NAUSEA - Objective Vital Signs: Vital Signs Temperature 98.4 F 11/08/17 09:00 Pulse Rate 87 11/08/17 09:00 Respiratory Rate 18 11/08/17 09:00 Blood Pressure 128/80 11/08/17 09:00 O2 Sat by Pulse Oximetry (%) 99 11/08/17 09:00 Constitutional: Yes: No Distress, Calm Cardiovascular: Yes: Regular Rate and Rhythm Respiratory: Yes: Regular, CTA Bilaterally Gastrointestinal: Yes: Normal Bowel Sounds, Soft Musculoskeletal: Yes: WNL Extremities: Yes: WNL Wound/Incision: Yes: Clean/Dry Neurological: Yes: Alert, Oriented Psychiatric: Yes: Alert, Oriented Labs: CBC, BMP 11/07/17 06:00 11/07/17 06:00 INR, PTT INR 1.15 (0.82-1.09) H 11/06/17 19:50 Assessment/Plan Problem List - Problems (1) Calculus of gallbladder with cholecystitis without biliary obstruction Code(s): K80.00 - CALCULUS OF GALLBLADDER W ACUTE CHOLECYST W/O OBSTRUCTION Qualifiers: Cholecystitis acuity: acute Qualified Code(s): K80.00 - Calculus of gallbladder with acute cholecystitis without obstruction (2) Upper abdominal pain Code(s): R10.10 - UPPER ABDOMINAL PAIN, UNSPECIFIED (3) Diarrhea Code(s): R19.7 - DIARRHEA, UNSPECIFIED Qualifiers: Diarrhea type: unspecified type Qualified Code(s): R19.7 - Diarrhea, unspecified (4) Nausea alone Code(s): R11.0 - NAUSEA (5) Hypothyroidism Code(s): E03.9 - HYPOTHYROIDISM, UNSPECIFIED Qualifiers: Hypothyroidism type: postoperative Qualified Code(s): E89.0 - Postprocedural hypothyroidism plan stop all abx can send patient home on falgyl 500 mg tid for 5 days monitor for dirrhoea if has dirrhoea then to repeat stools for cdiff
== END 2017-11-08 13:16 | disposition home or self-care (01) | DRG 263 ==
LOC: JER 15:37 → JERBED 20:30 → J7W 11-07 00:02
PROVIDERS: ADMIT Surgery; ATTEND Surgery
PROC: 0FT44ZZ Resection of Gallbladder, Percutaneous Endoscopic Approach (ICD-10-PCS; principal; 2017-11-07 15:30)
DX: K80.00 Calculus of gallbladder with acute cholecystitis without obstruction (principal); R19.7 Diarrhea, unspecified; R11.0 Nausea; E89.0 Postprocedural hypothyroidism; A04.72 Enterocolitis due to Clostridium difficile, not specified as recurrent; R00.0 Tachycardia, unspecified
CPT/HCPCS: 36415; 76705-TC; 80053; 81003; 81015; 83690; 84703; 85025; 85610; 85730; 86850; 86900; 86901; 87086; 87324; 87449; 88304-TC; 93005; 93010; 94760; 99284-25; J0131; J7030

== ENCOUNTER 2019-01-03 09:42 | Emergency (ER) | payer OTHER | END 2019-01-03 11:20 | disposition home or self-care (01) | LOC: JERFT 09:42 ==